=== PATIENT | male | born 1995 | race African-American/Black ===

== ENCOUNTER 2020-09-01 03:41 | Emergency (ER) | payer MEDICAID ==
[~2020-09-01] VITALS: Ht 175.3 cm; Wt 77.6 kg
[2020-09-01 03:50] VITALS: Ht 175.3 cm; Wt 77.6 kg
== END 2020-09-01 07:50 | disposition expired ==
LOC: ED 03:41
DX: S21.132A Puncture wound without foreign body of left front wall of thorax without penetration into thoracic cavity, initial encounter (principal); I46.9 Cardiac arrest, cause unspecified; X95.8XXA Assault by other firearm discharge, initial encounter; Y93.89 Activity, other specified; Y92.89 Other specified places as the place of occurrence of the external cause; Y99.8 Other external cause status
CPT/HCPCS: 32551